=== PATIENT | male | born 2000 | race Two or more races ===

== ENCOUNTER 2024-09-05 09:48 | Emergency (ER) | payer OTHER ==
[~2024-09-05] VITALS: Ht 177.8 cm; Wt 83.5 kg
[2024-09-05 10:06] VITALS: BP 151/83; TEMP 98.2
[2024-09-05] MEDS ORDERED: KETOROLAC TROMETHAMINE INJ 30 MG/ML VIAL ONE (10:58)
[2024-09-05] MEDS ORDERED: BACLOFEN (10 MG) 10 MG TABLET ONE (10:59)
[2024-09-05] MEDS: KETOROLAC TROMETHAMINE INJ 30 MG/ML VIAL IM ONE (11:04)
[2024-09-05] MEDS: BACLOFEN (10 MG) 10 MG TABLET PO ONE (11:06)
[2024-09-05] MEDS ORDERED: BACL5TAB PO (12:07)
[2024-09-05] MEDS ORDERED: KETO10TA2 PO (12:07)
[2024-09-05 12:19] VITALS: O2SAT 98
== END 2024-09-05 12:19 | disposition home or self-care (01) ==
LOC: ER 09:54
DX: M54.12 Radiculopathy, cervical region (principal)
CPT/HCPCS: 99285; 72125; 96372; J1885